=== PATIENT | female | born 1940 | race Caucasian/White ===

== ENCOUNTER 2017-11-25 20:23 | Observation (INO) | payer OTHER, BC ==
[~2017-11-25] VITALS: Ht 160 cm; Wt 92.8 kg
[~2017-11-25 20:23] MED LIST: ACTOS45 MG PO; AMLODIPINE BESYL5 MG PO; BYDUREON P2 MG/0.65 SC; BYDUREON2 MG SC; BYETTA PEN250 MCG/M1 SC; BYSTOLIC5 MG PO; CALCIUM 500 +1 EACH PO; COLACE100 MG PO; CRESTOR40 MG PO; ELIQUIS2.5 MG PO; ELIQUIS5 MG PO; FAMOTIDINE20 MG PO; FERREX 150150 MG PO; FUROSEMIDE20 MG PO; GLUCOPHAGE1000 MG PO; JANUMET 50/11 TABLET PO; JANUVIA25 M1 PO; LASIX20 MG PO; LOFIBRA134 MG PO; LOPERAMIDE2 MG PO; MAGNESIUM250 MG PO; METOPROLOL TART50 MG PO; PERCOCET 5/31 TABLET PO; POLYETHYLENE GL17 GM PO; PRINIVIL20 MG PO; RISEDRONATE SO150 MG PO; SIMVASTATIN20 MG PO; SYNTHROID150 MCG PO; VITAMIN B-122000 MC1 PO; VITAMIN B-6100 MG PO; VITAMIN D-32000 UNI2 PO; ZANAFLEX2 M1 PO; ZOLPIDEM TARTRAT5 MG PO; [UNRECOGNIZED DRUG - OTHER] BOTH NARES
[2017-11-25 22:14] LABS: HEMATOCRIT 33.3 % (36.0-46.0); HEMOGLOBIN 10.9 G/DL (11.9-15.5); MCH 30.5 PG (29.0-34.0); MCHC 32.7 G/DL (30.0-36.0); MCV 93.3 FL (83-99); PLATELET COUNT 130 K/uL (156-360); RBC DIS.WIDTH-CV 14.7 % (11.8-14.6); RBC DIS.WIDTH-SD 50.5 % (39-53); RED BLOOD COUNT 3.57 M/uL (3.80-5.20); WHITE BLOOD COUNT 5.7 K/uL (4.1-10.2)
[2017-11-25 22:28] LABS: CHLORIDE 106 mEq/L (99-109); POTASSIUM 4.5 mEq/L (3.7-5.4); SODIUM 140 mEq/L (136-147)
[2017-11-25 22:29] LABS: GLUCOSE 107 mg/dL (70-99)
[2017-11-25 22:33] LABS: CREATININE 1.4 mg/dL (0.6-1.3); GFR ESTIMATE (CALCULATED) 39 mL/min/
[2017-11-25 22:34] LABS: UREA NITROGEN (BUN) 29 mg/dL (9-23)
[2017-11-25 23:07] LABS: INTER. NORMALIZED RATIO 1.2
[2017-11-25 23:09] LABS: PTT 41.5 SEC (25-37)
[2017-11-25 23:20] LABS: TROP-I INTERPRETATION NEGATIVE; TROPONIN-I < 0.01 ng/mL (0.0-0.30)
[2017-11-26 04:46] LABS: HDL CHOLESTEROL 43 MG/DL (Desirable>=50); LDL CHOLESTEROL 28 mg/dL (Desirable<100); NON-HDL CHOLESTEROL 46 mg/dL (Desirable<160); TOTAL CHOLESTEROL 89 mg/dL (Desirable<200); TRIGLYCERIDES 88 MG/DL (Normal: <150)
[2017-11-26 06:01] VITALS: BP 137/72
[2017-11-26 07:42] VITALS: BP 136/69
[2017-11-26 09:57] LABS: HEMOGLOBIN A1c (GLYCOHEMOGLOB) 6.9 % (Below 5.7)
[2017-11-26 10:46] LABS: THYROTROPIN (TSH) 0.71 MIU/L (0.4-5.5)
[2017-11-26 11:15] VITALS: BP 193/81
[2017-11-26] MEDS ORDERED: ASPIR-LOW81 MG PO (11:21)
[2017-11-26 15:32] VITALS: BP 185/77
[2017-11-26] MEDS ORDERED: TYLENOL EXTRA500 MG PO (15:54)
[2017-11-26] MEDS ORDERED: COQ-10100 MG PO (15:55)
[2017-11-26] MEDS ORDERED: VITAMIN B-6100 MG PO (15:55)
[2017-11-26] MEDS ORDERED: MULTIVITAMIN1 EAC2 PO (15:56)
[2017-11-26] MEDS ORDERED: BYDUREON P2 MG/0.65 SC (15:57)
[2017-11-26] MEDS ORDERED: VITAMIN B-122000 MC1 PO (15:58)
[2017-11-26] MEDS ORDERED: CALCIUM 600 +1 EAC4 PO (16:00)
[2017-11-26] MEDS ORDERED: VITAMIN D-32000 UNI2 PO (16:01)
[2017-11-26] MEDS ORDERED: ELIQUIS5 MG PO (16:02)
[2017-11-26] MEDS ORDERED: MAGNESIUM250 MG PO (16:02)
[2017-11-26] MEDS ORDERED: ACTOS45 MG PO (16:03)
[2017-11-26] MEDS ORDERED: ACTONEL150 MG PO (16:04)
[2017-11-26] MEDS ORDERED: SYNTHROID150 MCG PO ×2 (16:06→16:08)
[2017-11-26] MEDS ORDERED: ZANAFLEX4 M1 PO (16:10)
[2017-11-26] MEDS ORDERED: FERREX 150150 MG PO (16:11)
[2017-11-26] MEDS ORDERED: CRESTOR40 MG PO (16:11)
[2017-11-26] MEDS ORDERED: FENOFIBRATE134 M1 PO (16:12)
[2017-11-26] MEDS ORDERED: LASIX20 MG PO (16:13)
[2017-11-26] MEDS ORDERED: JANUMET 50/11 TABLET PO (16:24)
[2017-11-26] MEDS ORDERED: PRINIVIL20 MG PO (16:25)
[2017-11-26] MEDS ORDERED: ASPIR 8181 M1 PO (16:26)
[2017-11-26 20:07] VITALS: BP 140/81
[2017-11-26 23:50] LABS: CHLORIDE 103 mEq/L (99-109); POTASSIUM 4.1 mEq/L (3.7-5.4); SODIUM 139 mEq/L (136-147)
[2017-11-26 23:51] LABS: MAGNESIUM 2.4 mg/dL (1.3-2.7)
[2017-11-26 23:56] LABS: CREATININE 1.5 mg/dL (0.6-1.3); GFR ESTIMATE (CALCULATED) 36 mL/min/
[2017-11-27] LABS: GLUCOSE 188 mg/dL (70-99); UREA NITROGEN (BUN) 45 mg/dL (9-23)
[2017-11-27 00:26] VITALS: BP 132/62
[2017-11-27 04:35] VITALS: BP 138/84
[2017-11-27 07:51] VITALS: BP 152/69
[2017-11-27 11:40] VITALS: BP 131/76
== END 2017-11-27 13:30 | disposition home or self-care (01) ==
LOC: EME 20:23 → EDOF 11-26 03:44 → ENRESERV 11-26 03:59 → EDOF 11-26 04:28 → ENRESERV 11-26 04:34 → 4SOUTH 11-26 05:12
PROVIDERS: Emergency Medicine; Hospitalist; Physician Assistant
DX: R20.0 Anesthesia of skin (principal); I48.91 Unspecified atrial fibrillation; E11.42 Type 2 diabetes mellitus with diabetic polyneuropathy; E03.9 Hypothyroidism, unspecified; D50.9 Iron deficiency anemia, unspecified; E78.5 Hyperlipidemia, unspecified; R22.0 Localized swelling, mass and lump, head; H57.8 Other specified disorders of eye and adnexa; H53.8 Other visual disturbances; R19.7 Diarrhea, unspecified; Z95.0 Presence of cardiac pacemaker; Z98.890 Other specified postprocedural states; I12.9 Hypertensive chronic kidney disease with stage 1 through stage 4 chronic kidney disease, or unspecified chronic kidney disease; E11.22 Type 2 diabetes mellitus with diabetic chronic kidney disease; N18.9 Chronic kidney disease, unspecified; Z79.82 Long term (current) use of aspirin; Z79.01 Long term (current) use of anticoagulants
CPT/HCPCS: 70450; 71046; 80048; 80061; 82948; 83036; 83735; 84443; 84484; 85027; 85610; 85651; 85730; 93880; G0378; J1815